=== PATIENT | male | born 1985 | race Caucasian/White ===

== ENCOUNTER 2021-08-08 23:05 | Emergency (ER) | payer OTHER ==
[~2021-08-08] VITALS: Ht 170.2 cm; Wt 90.7 kg
[~2021-08-08 23:05] MED LIST: ALAVERT D-12 A1 EACH PO; ALLOVERT; ASPIRIN325; HYDROXYZINE HCL25 M1; LAMICTAL100 MG PO; PROZAC20 MG PO; QUINIDINE SULF300 MG; SEROQUEL 50 MG50 MG PO
[2021-08-08 23:13] VITALS: BP 145/87
[2021-08-08 23:49] LABS: ABSOLUTE NEUTROPHILS 4.3 thou/uL (1.4-8.2); BASOPHILS 0.5 % (0.0-2.0); EOSINOPHILS 2.4 % (0.0-3.0); HEMATOCRIT 39.8 % (42.0-52.0); HEMOGLOBIN 13.9 gm/dL (14.0-18.0); LYMPHOCYTES 30.9 % (24.0-44.0); MCH 31.4 pg (26.0-34.0); MCHC 34.8 g/dL (28.0-37.0); MCV 90.1 fL (80.0-100.0); MONOCYTES 10.5 % (1.0-8.0); PLATELET COUNT 253 thou/uL (150-400); POLYS 55.7 % (36.0-66.0); RBC 4.42 mil/uL (4.50-6.00); RDW 12.8 % (10.5-14.5); WBC 7.7 thou/uL (4.0-11.0)
[2021-08-09 00:01] LABS: CREATININE 1.3 mg/dL (0.7-1.3); POTASSIUM 3.2 mmol/L (3.5-5.1)
[2021-08-09 00:05] LABS: ALBUMIN 3.9 g/dL (3.4-5.0); TOTAL BILIRUBIN 0.2 mg/dL (0.2-1.0); TOTAL PROTEIN 7.4 g/dL (6.4-8.2)
[2021-08-09] MEDS ORDERED: PEPCID20 MG PO (00:26)
[2021-08-09] MEDS ORDERED: MIRALAX119 GM PO (00:26)
--- NOTE | 2021-08-09 07:39 | EKG ---
[address] [address] ELECTROCARDIOGRAM REPORT Name: RAINERGONZÁLEZ CHISHOLM RABIA [id number] Admission: 08/08/21 Attend Phys: Discharge: 08/09/21 Date of : 83 Report #: [id number] [facility] ED Test Date: 2021-08-08 Test Time: 23:11:14 Pat Name: GONZÁLEZ CHRISTIANSON Department: Room: Gender: [employer] Operator: ONEIL : 1985 Requested By: Jerald Olsen Order Number: [id number] MD: Tyrese Card Measurements Intervals [place] Rate: 85 P: 77 NM: 147 QRS: 74 QRSD: 101 T: 39 QT: 370 QTc: 440 Interpretive Statements Sinus rhythm No previous ECG available for comparison Electronically Signed On 08-09-2021 7:39:27 [employer] by Tyrese Card [email or web address] <ELECTRONICALLY SIGNED> By: Tyrese Card MD, [facility] 08/09/21 0739 2311 2311 Tyrese Card MD, FACC /EPI
== END 2021-08-09 00:59 | disposition home or self-care (01) ==
LOC: ER 23:05
PROVIDERS: Emergency Medicine
DX: K29.70 Gastritis, unspecified, without bleeding (principal)